=== PATIENT | male | born 1990 | race Caucasian/White ===

== ENCOUNTER 2017-02-15 15:39 | Emergency (ER) | payer SELFPAY ==
[~2017-02-15] VITALS: Ht 172.7 cm; Wt 83.0 kg
[2017-02-15 15:41] VITALS: BP 152/88; PULSE 81; RESP 14; TEMP 97.6; O2SAT 97
[2017-02-15 16:49] VITALS: BP 135/81; PULSE 79; RESP 17; TEMP 98.8; O2SAT 99
--- NOTE | 2017-02-15 17:00 | PD ---
HPI Chief Complaint: GI Complaint Time Seen by Provider: 16:56 Travel History International Travel<30 days: No Contact w/Intl Traveler<30days: No Traveled to known affect area: No History of Present Illness HPI 36-year-old male presents to the ED for evaluation of one week history of decreased appetite. Accompanied by decreased sense of taste. Patient denies fever, chills, nausea, vomiting, chest pain, cough, abdominal pain, dysphagia, changes in bowel habits, dysuria, back pain. He states that he had a mild, diffuse, frontal headache for a few days that has since resolved. He states he was able to perform his normal activities during the headache. He denies chronic health problems, takes no daily medications. Denies history of abdominal surgery. He does not currently have insurance. He states that he was seen at and discharged with instructions to follow up with a instructor product inspection just before arrival. No treatment attempted at home. PFSH Past Medical History Medical History: Denies Significant Hx Tetanus Vaccination: Unknown Influenza Vaccination: No Past Surgical History Surgical History: No Previous Surgery Social History Alcohol Use: No Tobacco Use: No Substance Use: No Allergies-Medications (Allergen,Severity, Reaction): Coded Allergies: No Known Allergies (Unverified , 02/15/17) Reported Meds & Prescriptions Reported Meds & Active Scripts Active No Active Prescriptions or Reported Medications Review of Systems Except as stated in HPI: all other systems reviewed are Neg Physical Exam Narrative GENERAL: Well-nourished, well-developed , athletic, well-appearing white male in no acute distress. SKIN: Warm and dry. HEAD: Normocephalic. Atraumatic. EYES: No scleral icterus. No injection or drainage. PERRLA. EOMI. ENT: Pearly freedman tympanic membranes bilaterally. Nasal mucosa is moist, boggy. Oropharynx without erythema, edema or exudate. Moderate posterior cobblestoning noted. NECK: Supple, trachea midline. No JVD or lymphadenopathy. CARDIOVASCULAR: Regular rate and rhythm without murmurs, gallops, or rubs. RESPIRATORY: Breath sounds clear and equal bilaterally. No accessory muscle use. GASTROINTESTINAL: Abdomen soft, non-tender, nondistended. + Bowel sounds MUSCULOSKELETAL: No cyanosis, or edema. Moves all extremities spontaneously. BACK: Nontender without obvious deformity. No CVA tenderness. Data Data Last Documented VS Vital Signs Date Time Temp Pulse Resp B/P (MAP) Pulse Ox O2 Delivery O2 Flow Rate FiO2 02/15/17 17:23 02/15/17 16:49 98.8 79 17 99 Room Air Orders Orders Ed Discharge Order (02/15/17 17:00) [facility] Medical Decision Making Medical Screen Exam Complete: Yes Emergency Medical Condition: Yes Differential Diagnosis anorexia versus seasonal allergies versus dysphagia versus other Narrative Course 36-year-old male presents to the ED for evaluation of one week history of decreased appetite and decrease in taste. Patient denies fever, chills, nausea , vomiting, chest pain, cough, abdominal pain, dysphagia, changes in bowel habits, dysuria,penile discharge, back pain, history of abdominal surgery. He states that he was seen at and discharged with instructions to follow up with a instructor product inspection just before arrival. Vitals reviewed. Patient is hypertensive on presentation but this resolved with the exam room. Physical exam reveals a nontoxic-appearing athletic white male in no acute distress. ENT exam reveals boggy nasal mucosa and posterior oropharyngeal cobblestoning. The chest is clear to auscultation bilaterally. The abdominal exam is completely benign. We'll treat with Zyrtec and Zantac, have the patient follow up outpatient with the [facility]. He is agreeable to this care plan. We discussed reasons to return to the ED. He is stable and discharged home. Diagnosis Primary Impression: Appetite loss Additional Impression: Seasonal allergies Qualified Codes: J30.2 - Other seasonal allergic rhinitis Referrals: [facility] Patient Instructions: Diet for Stomach Ulcers and Gastritis (ED), General Instructions Additional Instructions: Rest, hydrate. Return to normal, gentle activities as tolerated. Eat bland food over the next few days and gradually reintroduce foods as tolerated. Take Zantac 150 mg twice daily and 10 mg Zyrtec daily for 30 days. Follow up with the [facility] as discussed. Return to the ED for worsening symptoms or any urgent or emergent medical condition. Scripts No Active Prescriptions or Reported Meds Disposition: DISCHARGE HOME Condition: Stable Marnie Morgan Feb 15, 2017 17:00
== END 2017-02-15 17:24 | disposition home or self-care (01) ==
LOC: NEPD 15:39
DX: R63.0 Anorexia (principal); J30.2 Other seasonal allergic rhinitis
CPT/HCPCS: 99282